=== PATIENT | female | born 1970 | race Caucasian/White ===

== ENCOUNTER → 2017-04-03 | Outpatient (CLI) | payer SELFPAY ==
[~2017-04-03] MED LIST: CLARITIN10 M3 PO; MONTELUKAST SOD10 MG PO; PRINIVIL10 MG PO; ZOLOFT100 MG PO
--- NOTE | ~2017-04-03 | CR97 ---
[facility] A Service of [facility] & [facility] RADIOLOGY TEXT RESULTS PATIENT: MELISSA LIMA LOCATION: [facility] : [birth year] UNIT #: [id number] AGE: [address]: Tyler Rivera MD SEX: F ORDER DR: [id number] [facility] [address] [place], [place] [address] [id number] O MR#: [id number] Acc #: [id number] NAME: MELISSA LIMA : 1970 SEX: F STUDY DATE/TIME: 04/03/2017 8:37 UNIT: [facility] ROOM: STUDY DESCRIPTION: CR Esophagram Attending Physician: Tyler Rivera M.D. Referring Physician: Tyler Rivera M.D. Ordering Physician: Tyler Rivera M.D. Primary Care Physician: Esther Tan MEDICAL IMAGING REPORT This report is preliminary unless electronic signature is present EXAM Barium esophagram INDICATIONS Morbid obesity. Preop for LAP-band surgery. No comparisons. The fluoro time is 0.4 minutes. 9 images were taken. FINDINGS The thoracic esophagus is normal in course and caliber. There is a small sliding hiatal hernia. IMPRESSION Small sliding hiatal hernia otherwise unremarkable Dictated by... Gil Campbell M.D. THIS IS AN ELECTRONICALLY VERIFIED REPORT Gil Campbell M.D. at 04/08/2017 11:21 AM BISI/cheryl TD: 04/04/2017 00:43 JOB #: [id number] MEDICAL IMAGING REPORT Page 1 of 1 COPY
--- NOTE | ~2017-04-03 | EKG ---
PATIENT: MELISSA LIMA UNIT #: [id number] Ventricular Rate: 68 BPM Atrial Rate: 68 BPM P-R Interval: 142 ms QRS Duration: 82 ms Q-T Interval: 416 ms QTC Calculation(Bezet): 442 ms P [place]: 35 degrees Calculated R [place]: 20 degrees Calculated T [place]: 28 degrees Diagnosis Line: Normal sinus rhythm Diagnosis Line: Low voltage QRS Diagnosis Line: Borderline ECG Diagnosis Line: No previous ECGs available Diagnosis Line: Confirmed by GUILLERMO JEAN MD ([id number]) on Diagnosis Line: 04/03/2017 10:54:39 AM INTERPRETING MD: MIRANDA WARREN
--- NOTE | ~2017-04-03 | CR63 ---
[facility] A Service of [facility] / [facility] RADIOLOGY TEXT RESULTS PATIENT: MELISSA LIMA LOCATION: [facility] : [birth year] UNIT #: [id number] AGE: [address]: Tyler Rivera MD SEX: F ORDER DR: [id number] [facility] [address] [place], [place] [address] [id number] O MR#: [id number] Acc #: [id number] NAME: MELISSA LIMA : 1970 SEX: F STUDY DATE/TIME: 04/03/2017 7:53 UNIT: [facility] ROOM: STUDY DESCRIPTION: CR Chest 2 View Attending Physician: Tyler Rivera M.D. Referring Physician: Tyler Rivera M.D. Ordering Physician: Tyler Rivera M.D. Primary Care Physician: Vero Tan M.D. MEDICAL IMAGING REPORT This report is preliminary unless electronic signature is present EXAM Two-view chest, 04/03/2017. HISTORY 46-year-old female for preoperative respiratory clearance prior to gastric lap-band surgery. Shortness of air today. COMPARISON None. FINDINGS Two views of the chest demonstrate a 2.5 cm mass projecting over the lateral right midlung field. Further characterization with chest CT recommended if this mass has not already been previously characterized. Lungs are otherwise clear. No pleural effusion or pneumothorax. Heart size and mediastinum are normal. Pulmonary vasculature normal. IMPRESSION 2.5 cm mass projects over the lateral right midlung field. Further characterization with contrast enhanced chest CT is recommended if this mass has not already been previously characterized. No other acute cardiopulmonary findings. Dictated by... Bernardo Pena M.D. THIS IS AN ELECTRONICALLY VERIFIED REPORT Bernardo Pena M.D. at 04/03/2017 4:37 PM Bryan TD: 04/03/2017 11:48 JOB #: [id number] [facility] A Service of [facility] / [facility] RADIOLOGY TEXT RESULTS PATIENT: MELISSA LIMA LOCATION: [facility] #: [id number] : [birth year] UNIT #: [id number] AGE: [address]: Tyler Rivera MD SEX: F ORDER DR: MEDICAL IMAGING REPORT Page 1 of 1 COPY
[2017-04-03 09:41] LABS: HEMATOCRIT 42.8 % (35.0-45.0); HEMOGLOBIN 14.3 gm/dL (12.0-16.0); MEAN CELL VOLUME 89.2 FL (83-96); MEAN CORPUSCULAR HEMOGLOBIN 29.9 PG (28-34); MEAN CORPUSCULAR HGB CONC 33.5 g/dL (30-36); MEAN PLATELET VOLUME 10.3 FL (6.5-11.5); RED BLOOD COUNT 4.79 X10e (3.90-5.30); RED CELL DISTRIBUTION WIDTH 13.9 % (11.0-15.5)
[2017-04-03 10:10] LABS: ALBUMIN SERUM 4.2 g/dL (3.5-5.0); BILIRUBIN,TOTAL 0.5 mg/dL (0.2-2.0); CALCIUM SERUM 9.5 mg/dL (8.4-10.2); GLOM FILT RATE Estimated 66.6 mL/min (>60); POTASSIUM 4.5 mmol/L (3.5-5.1); PROTEIN TOTAL SERUM 7.4 g/dL (6.0-8.3)
== END | disposition home or self-care (01) ==
LOC: CRAD 07:36 → CAMB 08:30
PROVIDERS: Surgery
DX: Z01.818 Encounter for other preprocedural examination (principal); R91.8 Other nonspecific abnormal finding of lung field
CPT/HCPCS: 36415; 71020; 74220; 80053; 80061; 84443; 85027; 93005

== ENCOUNTER → 2017-04-15 | Day surgery (SDC) | payer SELFPAY ==
--- NOTE | ~2017-04-15 | CR7 ---
[facility] A Service of [facility] & [facility] RADIOLOGY TEXT RESULTS PATIENT: MELISSA LIMA LOCATION: [facility] : [birth year] UNIT #: [id number] AGE: [address]: Tyler Rivera MD SEX: F ORDER DR: [id number] [facility] [address]. [place], [place] [address] [id number] O MR#: [id number] Acc #: [id number] NAME: MELISSA LIMA : 1970 SEX: F STUDY DATE/TIME: 04/15/2017 8:27 UNIT: [facility] ROOM: STUDY DESCRIPTION: CR Abdomen Single AP View Attending Physician: Tyler Rivera M.D. Ordering Physician: Tyler Rivera M.D. Primary Care Physician: Vero Tan M.D. MEDICAL IMAGING REPORT This report is preliminary unless electronic signature is present EXAM AP abdomen, 04/15/2017 at 08:27. HISTORY 46-year-old female with morbid obesity. Status post laparoscopic gastric band placement. Verify band placement today. COMPARISON None FINDINGS The gastric band device lies at or slightly below the expected location of the esophagogastric junction. The phi angle approximates 39.6 degrees. This measurement may be slightly erroneous due to the presence of gzw-et-jjrej thoracic curvature toward the right. Surgical kia project over the epigastrium in the right and left upper quadrant. Cholecystectomy changes are present. Band-like opacities are present within the bilateral lower lobes and may represent changes of atelectasis. A nodular density projects over the right midlung, corresponding to the 2.5-cm lesion on the chest x-ray from 04/03/2017. It is not definitely calcified. No gross free intraperitoneal air is identified. There is a nonobstructive bowel gas pattern. IMPRESSION 1. Gastric band device projects at or just slightly below the expected location of the esophagogastric junction with an approximate phi angle of 39.6 degrees. 2. Great than 2-cm nodular density in the periphery of the right midlung that is not definitely calcified. It corresponds to the abnormality seen on the 04/03/2017 chest radiograph. Correlate with outside CT STS. [facility] A Service of [facility] & [facility] RADIOLOGY TEXT RESULTS PATIENT: MELISSA LIMA LOCATION: [facility] : [birth year] UNIT #: [id number] AGE: [address]: Tyler Rivera MD SEX: F ORDER DR: chest imaging studies, if available, to document stability. Alternatively, dedicated CT chest with contrast would be recommended for further evaluation. 3. Band-like peripheral atelectasis in the lung bases. Dictated by... Anjali Fenton M.D. THIS IS AN ELECTRONICALLY VERIFIED REPORT Anjali Fenton M.D. at 04/16/2017 9:39 AM WILL/bruce TD: 04/15/2017 11:05 JOB #: [id number] MEDICAL IMAGING REPORT Page 1 of 1 COPY
--- NOTE | ~2017-04-15 | OR ---
Unit #: [id number] #: [id number] Patient: MELISSA LIMA [id number] [address] [address] [id number] O MR#: [id number] NAME: MELISSA LIMA ROOM: Date of Procedure: 04/15/2017 Admission Date: 04/15/2017 Surgeon: Tyler Rivera M.D. : 1970 Attending Physician: Tyler Rivera M.D. Primary Care Physician: Vero Tan M.D. OPERATIVE REPORT PREOPERATIVE DIAGNOSIS Chronic obesity, BMI of 39. POSTOPERATIVE DIAGNOSIS Chronic obesity, BMI of 39. SECONDARY DIAGNOSIS Paraesophageal hiatal hernia. PROCEDURES PERFORMED 1. Laparoscopic adjustable gastric band. 2. Laparoscopic paraesophageal hiatal hernia repair. ASSISTANT Marbin Ruiz M.D. ANESTHESIA General. ESTIMATED BLOOD LOSS Minimal. IV FLUIDS 800 crystalloid. COMPLICATIONS None. INDICATIONS FOR PROCEDURE The patient is a 46-year-old with chronic morbid obesity. DESCRIPTION OF PROCEDURE The patient was taken to the operating room and placed in supine position. General anesthesia was induced. The abdomen was prepped and draped. A 3-cm incision was then made left of the midline. A 10-mm Visiport was then placed intraabdominal under direct vision. The abdomen was insufflated to 15 mmHg with CO2. The patient was then placed in a steep reversed Trendelenburg. General inspection of the abdomen revealed what appeared to be a paraesophageal hernia. This was identified with a defect at the diaphragm using anterior palpation with the instrument. We then made a small incision in the subxiphoid region. A Antonia liver retractor was then placed intraabdominal and used to retract the left lobe Unit #: [id number] #: [id number] Patient: MELISSA LIMA of the liver upward to further expose the paraesophageal hernia and GE junction. I then placed a 5-mm port in the right upper quadrant, a 10-mm port in the left upper quadrant, and another 5-mm port in the left lower quadrant. The stomach was retracted medial and downward. Upon retracting the stomach, we took down the paraesophageal ligament, exposing the right and left janette at the paraesophageal hernia. Any hernia sac was reduced. We then repaired the paraesophageal hernia using interrupted #0 Ethibond sutures in a bysrie-ll-nbjhb type fashion. This formed a snug repair to the anterior esophagus. We then retracted the stomach medially and further exposed the angle of His using Bovie electrocautery. The stomach was then retracted laterally. We then took down the hepatogastric ligament with Bovie electrocautery. This exposed the right janette. Using blunt dissection, I created a retrogastric tunnel from this point to the angle of His. The band was then placed intraabdominal through the 10-mm port site. This was then brought through the retrogastric tunnel in a pars flaccida technique. The band was then closed anteriorly to form a 20-mL to 25-mL anterior gastric pouch. The fundus was then secured to the anterior pouch to prevent movement around the stomach using two interrupted #0 Ethibond sutures. A third suture was then used as a gathering stitch from the lesser curve to the anterior stomach, gathering and imbricating the remaining fundus of the stomach. The tubing was then brought out through the midline 10-mm port site. All ports and the Antonia liver retractor were removed under direct vision with no evidence of abdominal hemorrhage. A polypropylene mesh was then secured to the posterior face of the laparoscopic band port. This was secured using #0 Ethibond suture. This was then cut to shape. The port was then connected to the tubing and placed into a subcutaneous pocket just anterior to the rectus sheath. Its position was then confirmed. All tubing was then placed intraabdominal. The wounds were then closed with interrupted 4-0 Vicryl. The patient tolerated the procedure well and was sent to the recovery room in good condition. Dictated by... Verónica Bee/santana TD: 04/15/2017 11:19 JOB #: [id number] OPERATIVE REPORT Page 1 of 1 X Tyler Rivera MD X PROCEDURE OPERATIVE NOTE
== END | disposition home or self-care (01) ==
LOC: CSUR 05:52
DX: E66.01 Morbid (severe) obesity due to excess calories (principal); K44.9 Diaphragmatic hernia without obstruction or gangrene; I10 Essential (primary) hypertension; J45.909 Unspecified asthma, uncomplicated; Z72.4 Inappropriate diet and eating habits; Z68.39 Body mass index [BMI] 39.0-39.9, adult; Z88.1 Allergy status to other antibiotic agents; Z79.899 Other long term (current) drug therapy; Z90.49 Acquired absence of other specified parts of digestive tract; Z98.890 Other specified postprocedural states
CPT/HCPCS: 74000; 84703; C1781; J0330; J0690; J1650; J1885; J2250; J2405; J2710; J3010